=== PATIENT | male | born 1995 | race Two or more races ===

== ENCOUNTER 2023-06-23 17:12 | Emergency (ER) | payer MEDICAID ==
[~2023-06-23] VITALS: Ht 180.3 cm; Wt 100.0 kg
[2023-06-23 17:29] VITALS: BP 130/92; PULSE 90
[2023-06-23] MEDS: ALBUTEROL SULF 2.5 MG/0.5ML(0.5%) NEB SOLN NEB ONE (17:38)
[2023-06-23] MEDS: IPRATROPIUM BROM 0.5 MG/2.5ML INH SOL NEB ONE (17:38)
[2023-06-23 17:39] VITALS: RESP 22; O2SAT 94
[2023-06-23] MEDS ORDERED: DexAMETHasone SOD PHOS 10MG/1ML VIAL INJ IM ONE (18:15)
== END 2023-06-23 18:57 | disposition left against medical advice (07) ==
LOC: ER 17:12
DX: J45.901 Unspecified asthma with (acute) exacerbation (principal); Z53.21 Procedure and treatment not carried out due to patient leaving prior to being seen by health care provider
CPT/HCPCS: 94640; 99281; J7644